=== PATIENT | female | born 1980 | race Two or more races ===

== ENCOUNTER 2019-04-14 16:56 | Emergency (ER) | payer MEDICARE, MEDICAID ==
[~2019-04-14] VITALS: Ht 137.2 cm; Wt 47.2 kg
[2019-04-14] MEDS ORDERED: ONDANSETRON ODT 4 MG TAB PO ONE (17:45)
[2019-04-14 17:56] LABS: Basophils # (auto) 0 uL; Basophils % (auto) 0.7 % (0.0-2.0); Eosinophils # (auto) 0 uL; Eosinophils % (auto) 0.3 % (0.0-7.0); Hematocrit 41.3 % (36.0-46.0); Hemoglobin 13.9 g/dL (12.2-16.2); Lymphocytes # (auto) 0.9 uL; Lymphocytes % (auto) 25.9 % (10.0-50.0); Mean Corpuscular Hemoglobin 29.5 pg (28.0-32.0); Mean Corpuscular Hgb Conc. 33.7 g/dL (32.0-36.0); Mean Corpuscular Volume 87.5 fL (80.0-100.0); Monocytes # (auto) 0.3 uL; Monocytes % (auto) 7.5 % (0.0-12.0); Neutrophils # (auto) 2.3 uL; Neutrophils % (auto) 65.6 % (37.0-80.0); Nucleated Red Blood Cells % 0.2 %; Platelet Count (auto) 223 10^3/uL (140-450); Red Blood Cells 4.72 10^6/uL (4.0-5.20); Red Cell Distribution Width 14.6 % (11.8-14.3); White Blood Cell 3.5 10^3/uL (4.4-10.8)
[2019-04-14 18:12] LABS: Calcium 8.7 mg/dL (8.5-10.1); Potassium 3.8 mmol/L (3.5-5.1)
[2019-04-14 18:13] LABS: BUN/Creatinine Ratio 21.2
[2019-04-14 18:16] LABS: Bilirubin, Total 0.8 mg/dL (0.2-1.0); Total Protein 7.3 g/dL (6.4-8.2)
[2019-04-14 19:42] VITALS: BP 135/56
[2019-04-14 20:46] LABS: Urine Bacteria MANY /hpf (None Seen); Urine Blood Negative /uL (Negative); Urine Mucus FEW (None Seen); Urine Specific Gravity 1.016 (1.001-1.035); Urine WBC 19 /hpf (0 - 5)
== END 2019-04-14 19:40 | disposition home or self-care (01) ==
LOC: ER 16:56
DX: A08.4 Viral intestinal infection, unspecified (principal); N39.0 Urinary tract infection, site not specified
CPT/HCPCS: 36415; 70450; 72040; 80053; 81001; 82962; 85025; 93005

== ENCOUNTER → 2019-06-05 | Outpatient (CLI) | payer MEDICARE, MEDICAID ==
[2019-06-05 13:13] LABS: Basophils # (auto) 0 uL; Eosinophils # (auto) 0 uL; Platelet Count (auto) 229 10^3/uL (140-450)
[2019-06-05 13:16] LABS: Basophils % (auto) 2.1 % (0.0-2.0); Eosinophils % (auto) 0.5 % (0.0-7.0); Hematocrit 41.7 % (36.0-46.0); Hemoglobin 13.8 g/dL (12.2-16.2); Lymphocytes # (auto) 0.8 uL; Lymphocytes % (auto) 49.1 % (10.0-50.0); Mean Corpuscular Hgb Conc. 33.2 g/dL (32.0-36.0); Mean Corpuscular Volume 87.4 fL (80.0-100.0); Monocytes # (auto) 0.2 uL; Monocytes % (auto) 14.7 % (0.0-12.0); Neutrophils # (auto) 0.6 uL; Neutrophils % (auto) 33.6 % (37.0-80.0); Nucleated Red Blood Cells % 0.5 %; Red Blood Cells 4.77 10^6/uL (4.0-5.20); Red Cell Distribution Width 15.3 % (11.8-14.3)
[2019-06-05 13:30] LABS: Urine Bacteria FEW /hpf (None Seen); Urine Blood Negative /uL (Negative); Urine Mucus FEW (None Seen); Urine Specific Gravity 1.015 (1.001-1.035); Urine WBC 1 /hpf (0 - 5)
[2019-06-05 13:37] LABS: Cholesterol 169 mg/dL (< 200); HDL Cholesterol 67 mg/dL (40-59); LDL Cholesterol 86 mg/dL (< 100); Triglycerides 99 mg/dL (< 150)
[2019-06-05 13:43] LABS: Follicle Stimulating Hormone 26.37 IU/L (SEE BELOW); Free T4 (Free Thyroxine) 4.53 ng/dL (0.89-1.76)
[2019-06-05 13:52] LABS: Thyroid Stimulating Hormone < 0.01 uIU/mL (0.358-3.74)
[2019-06-05 14:07] LABS: White Blood Cell 1.7 10^3/uL (4.4-10.8)
[2019-06-09 15:16] LABS: Beta HCG, Quantitative 1 mlU/mL (1-3)
== END | disposition home or self-care (01) ==
LOC: LAB 12:37
PROVIDERS: ATTEND Internal Medicine
DX: E16.2 Hypoglycemia, unspecified (principal); N91.2 Amenorrhea, unspecified; D72.819 Decreased white blood cell count, unspecified; Q90.9 Down syndrome, unspecified; N91.1 Secondary amenorrhea; Z79.899 Other long term (current) drug therapy
CPT/HCPCS: 36415; 80061; 81001; 83001; 84439; 84443; 84702; 85025

== ENCOUNTER 2019-06-06 15:32 | Emergency (ER) | payer MEDICARE, MEDICAID ==
[~2019-06-06] VITALS: Ht 137.2 cm; Wt 49.9 kg
[2019-06-06 16:26] VITALS: BP 157/79
[2019-06-06 17:16] LABS: Basophils # (auto) 0 uL; Basophils % (auto) 1.7 % (0.0-2.0); Eosinophils # (auto) 0 uL; Eosinophils % (auto) 0.5 % (0.0-7.0); Hematocrit 39.3 % (36.0-46.0); Hemoglobin 13.3 g/dL (12.2-16.2); Lymphocytes # (auto) 1.2 uL; Lymphocytes % (auto) 45.6 % (10.0-50.0); Mean Corpuscular Hemoglobin 29.4 pg (28.0-32.0); Mean Corpuscular Hgb Conc. 33.7 g/dL (32.0-36.0); Mean Corpuscular Volume 87.2 fL (80.0-100.0); Monocytes # (auto) 0.3 uL; Neutrophils # (auto) 1.1 uL; Neutrophils % (auto) 40.2 % (37.0-80.0); Nucleated Red Blood Cells % 0.2 %; Platelet Count (auto) 226 10^3/uL (140-450); Red Blood Cells 4.51 10^6/uL (4.0-5.20); Red Cell Distribution Width 15.3 % (11.8-14.3); White Blood Cell 2.6 10^3/uL (4.4-10.8)
[2019-06-06 17:33] LABS: Calcium 8.5 mg/dL (8.5-10.1); Potassium 3.7 mmol/L (3.5-5.1)
[2019-06-06 17:36] LABS: BUN/Creatinine Ratio 27.9; Bilirubin, Total 0.5 mg/dL (0.2-1.0); Total Protein 7.1 g/dL (6.4-8.2)
[2019-06-08 08:25] LABS: Free T3 15.03 pg/mL (2.3-4.2); Free T4 (Free Thyroxine) 4.76 ng/dL (0.89-1.76); T3 Total 3.81 ng/mL (0.60-1.81)
== END 2019-06-06 23:19 | disposition home or self-care (01) ==
LOC: ER 15:36
DX: E03.9 Hypothyroidism, unspecified (principal)
CPT/HCPCS: 36415; 80053; 84436; 84439; 84443; 84480; 84481; 85025

== ENCOUNTER → 2019-06-25 | Outpatient (CLI) | payer MEDICARE, MEDICAID | END | disposition home or self-care (01) | LOC: XYW 10:15 | PROVIDERS: ATTEND Internal Medicine | DX: Z03.89 Encounter for observation for other suspected diseases and conditions ruled out (principal); I35.0 Nonrheumatic aortic (valve) stenosis | CPT/HCPCS: 36415; 84439; 84443; 84481; 85025; 93306 ==

== ENCOUNTER → 2019-06-25 | Outpatient (CLI) | payer MEDICARE, MEDICAID ==
[2019-06-25 12:33] LABS: Basophils # (auto) 0 uL; Basophils % (auto) 2.2 % (0.0-2.0); Eosinophils # (auto) 0 uL; Eosinophils % (auto) 0.3 % (0.0-7.0); Hematocrit 41.6 % (36.0-46.0); Hemoglobin 13.8 g/dL (12.2-16.2); Lymphocytes # (auto) 0.9 uL; Lymphocytes % (auto) 47.8 % (10.0-50.0); Mean Corpuscular Hemoglobin 29.2 pg (28.0-32.0); Mean Corpuscular Hgb Conc. 33.3 g/dL (32.0-36.0); Mean Corpuscular Volume 87.6 fL (80.0-100.0); Monocytes # (auto) 0.3 uL; Monocytes % (auto) 14.1 % (0.0-12.0); Neutrophils # (auto) 0.7 uL; Neutrophils % (auto) 35.6 % (37.0-80.0); Nucleated Red Blood Cells % 0.4 %; Platelet Count (auto) 257 10^3/uL (140-450); Red Blood Cells 4.75 10^6/uL (4.0-5.20); Red Cell Distribution Width 15.5 % (11.8-14.3)
[2019-06-25 12:48] LABS: Free T3 17.04 pg/mL (2.3-4.2); Free T4 (Free Thyroxine) 5.53 ng/dL (0.89-1.76)
== END | disposition home or self-care (01) ==
LOC: LAB 11:55
PROVIDERS: ATTEND Internal Medicine
DX: D72.819 Decreased white blood cell count, unspecified (principal); E05.90 Thyrotoxicosis, unspecified without thyrotoxic crisis or storm
CPT/HCPCS: 36415; 84439; 84443; 84481; 85025

== ENCOUNTER → 2019-09-15 | Outpatient (CLI) | payer MEDICARE, MEDICAID ==
[2019-09-15 13:06] LABS: Basophils # (auto) 0 10 ^3/uL (0-0.2); Basophils % (auto) 0.9 % (0.0-2.0); Eosinophils # (auto) 0 10 ^3/uL (0-0.8); Eosinophils % (auto) 0.8 % (0.0-7.0); Hematocrit 41.6 % (36.0-46.0); Hemoglobin 14.1 g/dL (12.2-16.2); Lymphocytes # (auto) 0.9 10 ^3/uL (0.4-5.4); Lymphocytes % (auto) 24.4 % (10.0-50.0); Mean Corpuscular Hemoglobin 30.6 pg (28.0-32.0); Monocytes # (auto) 0.2 10 ^3/uL (0-1.3); Neutrophils # (auto) 2.6 10 ^3/uL (1.6-8.6); Neutrophils % (auto) 68.9 % (37.0-80.0); Nucleated Red Blood Cells % 0.1 %; Platelet Count (auto) 272 10^3/uL (140-450); Red Blood Cells 4.63 10^6/uL (4.0-5.20); Red Cell Distribution Width 16.3 % (11.8-14.3); White Blood Cell 3.8 10^3/uL (4.4-10.8)
[2019-09-15 13:25] LABS: Free T4 (Free Thyroxine) 0.78 ng/dL (0.89-1.76)
[2019-09-15 13:26] LABS: Free T3 2.23 pg/mL (2.3-4.2)
== END | disposition home or self-care (01) ==
LOC: LAB 12:32
DX: D64.9 Anemia, unspecified (principal); E05.90 Thyrotoxicosis, unspecified without thyrotoxic crisis or storm
CPT/HCPCS: 36415; 84439; 84443; 84481; 85025; 86376; 86800

== ENCOUNTER → 2019-12-01 | Outpatient (CLI) | payer MEDICARE, MEDICAID ==
[2019-12-01 17:26] LABS: Albumin 2.9 g/dL (3.4-5.0); Calcium 7.7 mg/dL (8.5-10.1); Potassium 3.9 mmol/L (3.5-5.1)
[2019-12-01 17:29] LABS: BUN/Creatinine Ratio 25.3; Bilirubin, Total 0.3 mg/dL (0.2-1.0); Total Protein 6.9 g/dL (6.4-8.2)
[2019-12-01 17:36] LABS: Free T3 3.11 pg/mL (2.3-4.2); Free T4 (Free Thyroxine) 1.16 ng/dL (0.89-1.76)
== END | disposition home or self-care (01) ==
LOC: LAB 15:58
DX: E05.90 Thyrotoxicosis, unspecified without thyrotoxic crisis or storm (principal)
CPT/HCPCS: 36415; 80053; 84439; 84443; 84481

== ENCOUNTER → 2021-01-30 | Emergency (ER) | payer MEDICARE, MEDICAID | END | disposition left against medical advice (07) | LOC: ER 20:52 | DX: E86.0 Dehydration (principal); Z53.21 Procedure and treatment not carried out due to patient leaving prior to being seen by health care provider ==

== ENCOUNTER 2021-03-04 03:36 | Emergency (ER) | payer MEDICARE, MEDICAID ==
[~2021-03-04] VITALS: Ht 137.2 cm; Wt 46.3 kg
[2021-03-04 05:11] LABS: Basophils # (auto) 0.1 10 ^3/uL (0-0.2); Basophils % (auto) 1.4 % (0.0-2.0); Eosinophils # (auto) 0 10 ^3/uL (0-0.8); Eosinophils % (auto) 0.8 % (0.0-7.0); Hematocrit 34.4 % (36.0-46.0); Hemoglobin 11.3 g/dL (12.2-16.2); Lymphocytes # (auto) 1.6 10 ^3/uL (0.4-5.4); Lymphocytes % (auto) 31.2 % (10.0-50.0); Mean Corpuscular Hemoglobin 31.7 pg (28.0-32.0); Mean Corpuscular Hgb Conc. 32.9 g/dL (32.0-36.0); Mean Corpuscular Volume 96.3 fL (80.0-100.0); Monocytes # (auto) 0.4 10 ^3/uL (0-1.3); Monocytes % (auto) 7.8 % (0.0-12.0); Neutrophils % (auto) 58.8 % (37.0-80.0); Nucleated Red Blood Cells % 0.1 %; Red Blood Cells 3.57 10^6/uL (4.0-5.20); Red Cell Distribution Width 19.2 % (11.8-14.3); White Blood Cell 5.1 10^3/uL (4.4-10.8)
[2021-03-04 05:27] LABS: Albumin 1.6 g/dL (3.4-5.0); Potassium 3.4 mmol/L (3.5-5.1)
[2021-03-04 05:30] LABS: Bilirubin, Total 0.4 mg/dL (0.2-1.0); Total Protein 5.1 g/dL (6.4-8.2)
[2021-03-04 05:48] LABS: Calcium 5.9 mg/dL (8.5-10.1)
[2021-03-04] MEDS ORDERED: CALCIUM GLUC 1,000mg/50ml-NS 50 ML IV ONE (06:00)
[2021-03-04] MEDS ORDERED: POTASSIUM EFFERVESENT TAB 25 MEQ PO ONE (07:00)
[2021-03-04 11:00] VITALS: BP 135/75
== END 2021-03-04 12:36 | disposition home or self-care (01) ==
LOC: ER 03:36 → EDBD 03:36 → ER 12:36
DX: E83.51 Hypocalcemia (principal); E87.6 Hypokalemia; E43 Unspecified severe protein-calorie malnutrition; E03.9 Hypothyroidism, unspecified; Z68.24 Body mass index [BMI] 24.0-24.9, adult
CPT/HCPCS: 36415; 70450; 80053; 82310; 82330; 83735; 85025; 93005; 96365; 99285; J0610

== ENCOUNTER 2021-04-22 19:12 | Inpatient (IN) | payer MEDICARE, MEDICAID ==
[~2021-04-22] VITALS: Ht 137.2 cm; Wt 47.1 kg
[2021-04-23 00:28] LABS: Basophils # (auto) 0.1 10 ^3/uL (0-0.2); Basophils % (auto) 1.6 % (0.0-2.0); Eosinophils # (auto) 0 10 ^3/uL (0-0.8); Eosinophils % (auto) 0.2 % (0.0-7.0); Hematocrit 46.5 % (36.0-46.0); Hemoglobin 15.3 g/dL (12.2-16.2); Lymphocytes # (auto) 1.3 10 ^3/uL (0.4-5.4); Lymphocytes % (auto) 21.9 % (10.0-50.0); Mean Corpuscular Hemoglobin 31.6 pg (28.0-32.0); Mean Corpuscular Volume 95.8 fL (80.0-100.0); Monocytes # (auto) 0.4 10 ^3/uL (0-1.3); Monocytes % (auto) 7.1 % (0.0-12.0); Neutrophils % (auto) 69.2 % (37.0-80.0); Nucleated Red Blood Cells % 0.1 %; Red Blood Cells 4.85 10^6/uL (4.0-5.20); Red Cell Distribution Width 15.3 % (11.8-14.3); White Blood Cell 5.8 10^3/uL (4.4-10.8)
[2021-04-23 00:44] LABS: Albumin 3.9 g/dL (3.4-5.0); BUN/Creatinine Ratio 11.6; Calcium 9.2 mg/dL (8.5-10.1); Magnesium 2.8 mg/dL (1.6-2.6)
[2021-04-23 00:47] LABS: Bilirubin, Total 0.5 mg/dL (0.2-1.0); Total Protein 8.6 g/dL (6.4-8.2)
[2021-04-23] MEDS ORDERED: SODIUM CHLORIDE 0.9% 1,000 ML IV ONE (02:45)
[2021-04-23] MEDS ORDERED: ONDANSETRON HCL 4 MG/2 ML VIAL IV PRN (03:00)
[2021-04-23] MEDS ORDERED: ACETAMINOPHEN 325 MG TAB PO PRN (03:00)
[2021-04-23] MEDS ORDERED: DOCUSATE SOD 100 MG CAP PO PRN (03:00)
[2021-04-23] MEDS ORDERED: HYDROcodone-ACET 5/325MG TAB PO PRN (03:00)
[2021-04-23] MEDS ORDERED: levETIRAcetam 500 MG/5ML INJ IV ONE (04:07)
[2021-04-23] MEDS ORDERED: LORazepam 2MG/ML-1ML VIAL IV ONE (04:15)
[2021-04-23 04:34] LABS: Basophils # (auto) 0.1 10 ^3/uL (0-0.2); Basophils % (auto) 1.2 % (0.0-2.0); Eosinophils # (auto) 0 10 ^3/uL (0-0.8); Hematocrit 43.4 % (36.0-46.0); Hemoglobin 14.6 g/dL (12.2-16.2); Lymphocytes # (auto) 1.2 10 ^3/uL (0.4-5.4); Lymphocytes % (auto) 18.4 % (10.0-50.0); Mean Corpuscular Hemoglobin 31.7 pg (28.0-32.0); Mean Corpuscular Hgb Conc. 33.6 g/dL (32.0-36.0); Mean Corpuscular Volume 94.6 fL (80.0-100.0); Monocytes # (auto) 0.4 10 ^3/uL (0-1.3); Monocytes % (auto) 7.1 % (0.0-12.0); Neutrophils # (auto) 4.6 10 ^3/uL (1.6-8.6); Neutrophils % (auto) 73.3 % (37.0-80.0); Nucleated Red Blood Cells % 0.1 %; Red Blood Cells 4.59 10^6/uL (4.0-5.20); Red Cell Distribution Width 15.7 % (11.8-14.3); White Blood Cell 6.3 10^3/uL (4.4-10.8)
[2021-04-23 04:41] LABS: INR 1.12 (0.9-1.15)
[2021-04-23 04:45] LABS: Albumin 3.7 g/dL (3.4-5.0); Calcium 8.8 mg/dL (8.5-10.1); Magnesium 2.9 mg/dL (1.6-2.6); Potassium 4.2 mmol/L (3.5-5.1)
[2021-04-23] MEDS ORDERED: MORPHINE SULFATE INJECTION 2 MG/ML SYRG IV PRN (04:45)
[2021-04-23] MEDS ORDERED: NITROGLYCERIN 0.4 MG SL TAB SL PRN (04:45)
[2021-04-23 04:52] LABS: BUN/Creatinine Ratio 11.6; Bilirubin, Total 0.5 mg/dL (0.2-1.0); Total Protein 8.8 g/dL (6.4-8.2)
[2021-04-23] MEDS: SODIUM CHLOR 0.9% PF (SALINE LOCK) 10ML VIAL/SYR IV SCH ×3 (05:59→22:15)
[2021-04-23] MEDS: ZINC SULFATE 220mg CAP or TAB PO SCH (10:00)
[2021-04-23] MEDS: MULTIPLE VITAMIN TAB PO SCH (10:00)
[2021-04-23] MEDS: ASCORBIC ACID 500 MG TAB PO SCH ×2 (10:00→22:00)
[2021-04-23] MEDS: ENOXAPARIN SOD 40 MG/0.4 ML SYRINGE SC SCH (10:20)
[2021-04-23] MEDS: FAMOTIDINE (10MG/ML) 2ML VL IV SCH (10:20)
[2021-04-23] MEDS ORDERED: METH5T PO (18:39)
[2021-04-23] MEDS ORDERED: OMEP-434 PO (18:39)
[2021-04-23] MEDS ORDERED: LEVE500T32 PO (19:34)
[2021-04-23] MEDS ORDERED: DIP005TP TOP (19:35)
[2021-04-23] MEDS ORDERED: TRIA0.1P17 TOP (19:35)
[2021-04-23 22:00] VITALS: BP 100/59
[2021-04-23] MEDS ORDERED: LORazepam 2MG/ML-1ML VIAL IV PRN ×2 (23:15)
[2021-04-24 05:00] VITALS: BP 122/70
[2021-04-24] MEDS: SODIUM CHLOR 0.9% PF (SALINE LOCK) 10ML VIAL/SYR IV SCH ×3 (05:43→21:50)
[2021-04-24 09:00] VITALS: BP 114/62
[2021-04-24] MEDS: FAMOTIDINE (10MG/ML) 2ML VL IV SCH (12:05)
[2021-04-24] MEDS: ENOXAPARIN SOD 40 MG/0.4 ML SYRINGE SC SCH (12:06)
[2021-04-24] MEDS: MULTIPLE VITAMIN TAB PO SCH (12:06)
[2021-04-24] MEDS: ASCORBIC ACID 500 MG TAB PO SCH ×2 (12:06→21:50)
[2021-04-24] MEDS: ZINC SULFATE 220mg CAP or TAB PO SCH (12:06)
[2021-04-24 13:00] VITALS: BP 110/58
[2021-04-24 14:47] LABS: Albumin 3.3 g/dL (3.4-5.0); Calcium 8.2 mg/dL (8.5-10.1)
[2021-04-24 14:52] LABS: Bilirubin, Total 0.6 mg/dL (0.2-1.0); Total Protein 7.1 g/dL (6.4-8.2)
[2021-04-24 16:54] LABS: Basophils # (auto) 0.1 10 ^3/uL (0-0.2); Eosinophils # (auto) 0 10 ^3/uL (0-0.8); Eosinophils % (auto) 0.6 % (0.0-7.0); Hematocrit 42.6 % (36.0-46.0); Hemoglobin 14.1 g/dL (12.2-16.2); Lymphocytes # (auto) 1.2 10 ^3/uL (0.4-5.4); Lymphocytes % (auto) 36.4 % (10.0-50.0); Mean Corpuscular Hemoglobin 31.7 pg (28.0-32.0); Mean Corpuscular Hgb Conc. 33.1 g/dL (32.0-36.0); Mean Corpuscular Volume 95.9 fL (80.0-100.0); Monocytes # (auto) 0.3 10 ^3/uL (0-1.3); Monocytes % (auto) 9.3 % (0.0-12.0); Neutrophils # (auto) 1.8 10 ^3/uL (1.6-8.6); Neutrophils % (auto) 51.7 % (37.0-80.0); Nucleated Red Blood Cells % 0.1 %; Red Blood Cells 4.44 10^6/uL (4.0-5.20); Red Cell Distribution Width 15.1 % (11.8-14.3); White Blood Cell 3.4 10^3/uL (4.4-10.8)
[2021-04-24 17:00] VITALS: BP 135/64
[2021-04-24 23:16] VITALS: BP 104/44
[2021-04-25 05:00] VITALS: BP 91/47
[2021-04-25] MEDS: SODIUM CHLOR 0.9% PF (SALINE LOCK) 10ML VIAL/SYR IV SCH ×3 (06:07→21:20)
[2021-04-25] MEDS: FAMOTIDINE (10MG/ML) 2ML VL IV SCH (10:32)
[2021-04-25] MEDS: ZINC SULFATE 220mg CAP or TAB PO SCH (10:32)
[2021-04-25] MEDS: ENOXAPARIN SOD 40 MG/0.4 ML SYRINGE SC SCH (10:33)
[2021-04-25] MEDS: ASCORBIC ACID 500 MG TAB PO SCH ×2 (10:33→21:19)
[2021-04-25] MEDS: MULTIPLE VITAMIN TAB PO SCH (10:33)
[2021-04-25 17:00] VITALS: BP 93/56
[2021-04-25 22:00] VITALS: BP 95/52
[2021-04-26] MEDS: SODIUM CHLOR 0.9% PF (SALINE LOCK) 10ML VIAL/SYR IV SCH ×3 (05:48→22:00)
[2021-04-26 09:00] VITALS: BP 115/51
[2021-04-26] MEDS: ASCORBIC ACID 500 MG TAB PO SCH (10:00)
[2021-04-26] MEDS: ZINC SULFATE 220mg CAP or TAB PO SCH (10:00)
[2021-04-26] MEDS: FAMOTIDINE (10MG/ML) 2ML VL IV SCH (10:00)
[2021-04-26] MEDS: MULTIPLE VITAMIN TAB PO SCH (10:00)
[2021-04-26] MEDS: ENOXAPARIN SOD 40 MG/0.4 ML SYRINGE SC SCH (10:00)
[2021-04-26 16:54] VITALS: BP 118/67
[2021-04-27] MEDS: SODIUM CHLOR 0.9% PF (SALINE LOCK) 10ML VIAL/SYR IV SCH ×3 (06:00→22:09)
[2021-04-27 09:00] VITALS: BP 104/65
[2021-04-27] MEDS: MULTIPLE VITAMIN TAB PO SCH (10:00)
[2021-04-27] MEDS: ENOXAPARIN SOD 40 MG/0.4 ML SYRINGE SC SCH (10:00)
[2021-04-27 10:14] LABS: Free T3 2.29 pg/mL (2.3-4.2); Free T4 (Free Thyroxine) 1.2 ng/dL (0.89-1.76); T3 Total 0.62 ng/mL (0.60-1.81)
[2021-04-27] MEDS: FAMOTIDINE (10MG/ML) 2ML VL IV SCH (10:49)
[2021-04-27] MEDS ORDERED: LORazepam 2MG/ML-1ML VIAL IV ONE (11:30)
[2021-04-27 13:00] VITALS: BP 99/70
[2021-04-27 17:00] VITALS: BP 95/57
[2021-04-27 19:14] LABS: Albumin 3.5 g/dL (3.4-5.0); Calcium 8.4 mg/dL (8.5-10.1)
[2021-04-27 19:17] LABS: BUN/Creatinine Ratio 15.9; Bilirubin, Total 0.6 mg/dL (0.2-1.0); Phosphorus 3.4 mg/dL (2.5-4.90); Total Protein 7.6 g/dL (6.4-8.2)
[2021-04-27] MEDS ORDERED: AMINO ACID INFUSION IN D10W 1,000 ML IV NR (20:00)
[2021-04-27] MEDS ORDERED: PPN PER PHARMACY 0 ML IV SCH (22:00)
[2021-04-28] MEDS ORDERED: DEXTROSE (50%) 50ML SYRG IV SCH
[2021-04-28] MEDS: ACCU-CHEK COMFORT CURVE STRIP VI SCH ×5 (00:03→23:46)
[2021-04-28] MEDS: SODIUM CHLOR 0.9% PF (SALINE LOCK) 10ML VIAL/SYR IV SCH ×3 (05:30→22:15)
[2021-04-28] MEDS: InsuLIN REG 1unit/0.01ml Soln (100units/ml) SC SCH ×5 (05:31→23:45)
[2021-04-28 05:46] VITALS: BP 115/55
[2021-04-28 07:45] LABS: Albumin 2.5 g/dL (3.4-5.0); Calcium 6.2 mg/dL (8.5-10.1); Magnesium 2.4 mg/dL (1.6-2.6); Potassium 3.3 mmol/L (3.5-5.1)
[2021-04-28 07:50] LABS: BUN/Creatinine Ratio 21.7; Bilirubin, Total 0.5 mg/dL (0.2-1.0); Phosphorus 2.3 mg/dL (2.5-4.90); Total Protein 5.3 g/dL (6.4-8.2)
[2021-04-28 08:17] LABS: Pre Albumin 8.5 mg/dL (20.0-40.0)
[2021-04-28 09:00] VITALS: BP 124/92
[2021-04-28] MEDS ORDERED: CALCIUM GLUC 1,000mg/50ml-NS 50 ML IV ONE (09:00)
[2021-04-28] MEDS: FAMOTIDINE (10MG/ML) 2ML VL IV SCH (09:10)
[2021-04-28] MEDS: ENOXAPARIN SOD 40 MG/0.4 ML SYRINGE SC SCH (09:10)
[2021-04-28] MEDS: MULTIPLE VITAMIN TAB PO SCH (09:11)
[2021-04-28] MEDS ORDERED: POTASSIUM PHOSPHATE 26.4 MEQ in SODIUM CHL 0.9% 100 ML IV ONE (10:00)
[2021-04-28] MEDS ORDERED: POTASSIUM EFFERVESENT TAB 25 MEQ PO ONE (10:45)
[2021-04-28 13:00] VITALS: BP 111/73
[2021-04-28 17:00] VITALS: BP 109/52
[2021-04-28] MEDS ORDERED: ERGOCALCIFEROL 50,000 UNIT(1.25MG) CAP PO SCH (17:00)
[2021-04-28] MEDS ORDERED: PPN PER PHARMACY IV NR ×9 (20:00)
[2021-04-28 21:23] LABS: Urine Bacteria MOD /hpf (None Seen); Urine Blood Negative /uL (Negative); Urine Hyaline Cast FEW /lpf (0 - 2); Urine Mucus FEW (None Seen); Urine Specific Gravity 1.007 (1.001-1.035); Urine WBC 2 /hpf (0 - 5)
[2021-04-28 22:00] VITALS: BP 110/60
[2021-04-29] MEDS: InsuLIN REG 1unit/0.01ml Soln (100units/ml) SC SCH ×4 (05:32→23:31)
[2021-04-29] MEDS: ACCU-CHEK COMFORT CURVE STRIP VI SCH ×3 (05:32→18:11)
[2021-04-29] MEDS: SODIUM CHLOR 0.9% PF (SALINE LOCK) 10ML VIAL/SYR IV SCH ×3 (05:32→23:30)
[2021-04-29 09:00] VITALS: BP 118/64
[2021-04-29] MEDS: MULTIPLE VITAMIN TAB PO SCH (10:00)
[2021-04-29] MEDS: FAMOTIDINE (10MG/ML) 2ML VL IV SCH (10:18)
[2021-04-29] MEDS: ENOXAPARIN SOD 40 MG/0.4 ML SYRINGE SC SCH (10:21)
[2021-04-29 12:31] LABS: Albumin 3.5 g/dL (3.4-5.0); Calcium 8.8 mg/dL (8.5-10.1); Magnesium 2.7 mg/dL (1.6-2.6); Potassium 4.1 mmol/L (3.5-5.1)
[2021-04-29 12:36] LABS: BUN/Creatinine Ratio 29.4; Bilirubin, Total 0.8 mg/dL (0.2-1.0); Phosphorus 2.7 mg/dL (2.5-4.90); Total Protein 7.9 g/dL (6.4-8.2)
[2021-04-29 17:00] VITALS: BP 97/47
[2021-04-29] MEDS: PPN PER PHARMACY IV NR ×7 (19:53)
[2021-04-29 22:08] VITALS: BP 109/55
[2021-04-30] MEDS: InsuLIN REG 1unit/0.01ml Soln (100units/ml) SC SCH ×3 (06:00→17:48)
[2021-04-30] MEDS: ACCU-CHEK COMFORT CURVE STRIP VI SCH ×4 (06:00→17:48)
[2021-04-30] MEDS: SODIUM CHLOR 0.9% PF (SALINE LOCK) 10ML VIAL/SYR IV SCH ×3 (06:00→21:39)
[2021-04-30 07:44] LABS: Calcium 8.1 mg/dL (8.5-10.1); Magnesium 2.6 mg/dL (1.6-2.6)
[2021-04-30 07:48] LABS: Bilirubin, Total 0.6 mg/dL (0.2-1.0); Phosphorus 2.8 mg/dL (2.5-4.90); Total Protein 7.3 g/dL (6.4-8.2)
[2021-04-30 08:00] VITALS: BP 96/50
[2021-04-30 08:01] LABS: Potassium 2.8 mmol/L (3.5-5.1)
[2021-04-30] MEDS: POTASSIUM CHL 20MEQ/50ML 50 ML IV SCH ×2 (08:46→12:04)
[2021-04-30 09:00] VITALS: BP 96/50
[2021-04-30] MEDS: MULTIPLE VITAMIN TAB PO SCH (10:00)
[2021-04-30] MEDS: FAMOTIDINE (10MG/ML) 2ML VL IV SCH (10:28)
[2021-04-30] MEDS: ENOXAPARIN SOD 40 MG/0.4 ML SYRINGE SC SCH (10:28)
[2021-04-30 13:00] VITALS: BP 98/62
[2021-04-30 17:00] VITALS: BP 99/62
[2021-04-30] MEDS: PPN PER PHARMACY IV NR ×15 (19:59→21:35)
[2021-04-30 22:16] VITALS: BP 86/64
[2021-05-01 09:00] VITALS: BP 92/57
[2021-05-01] MEDS: FAMOTIDINE (10MG/ML) 2ML VL IV SCH (10:00)
[2021-05-01] MEDS: InsuLIN REG 1unit/0.01ml Soln (100units/ml) SC SCH ×4 (11:25→18:00)
[2021-05-01] MEDS: ACCU-CHEK COMFORT CURVE STRIP VI SCH ×4 (11:33→17:57)
[2021-05-01 11:54] LABS: BUN/Creatinine Ratio 33.9
[2021-05-01 11:55] LABS: Albumin 3.3 g/dL (3.4-5.0); Bilirubin, Total 0.7 mg/dL (0.2-1.0); Calcium 8.5 mg/dL (8.5-10.1); Magnesium 2.5 mg/dL (1.6-2.6); Phosphorus 2.5 mg/dL (2.5-4.90); Total Protein 7.5 g/dL (6.4-8.2)
[2021-05-01] MEDS ORDERED: fentaNYL CITRATE 100 MCG/2 ML VL ONE (12:26)
[2021-05-01] MEDS ORDERED: diphenhdrAMINE HCL 50 MG/1 ML VL ONE (12:26)
[2021-05-01] MEDS ORDERED: LIDOCAINE VISCOUS 2% 15ML UD ONE (12:26)
[2021-05-01] MEDS ORDERED: NALOXONE HCL 0.4 MG/ML VIAL ONE (12:56)
[2021-05-01] MEDS ORDERED: EPINEPHrine HCL 1 MG/10 ML SYRG ONE (12:56)
[2021-05-01] MEDS ORDERED: FLUMAZENIL 0.1 MG/ML INJ 10ML MDV IV ONE (12:56)
[2021-05-01 13:00] VITALS: BP 93/56
[2021-05-01] MEDS: MIDAZOLAM HCL 5 MG/ML-1ML VIAL ONE ×2 (13:46→13:51)
[2021-05-01] MEDS: SODIUM CHLOR 0.9% PF (SALINE LOCK) 10ML VIAL/SYR IV SCH ×2 (14:00→14:30)
[2021-05-01] MEDS: MULTIPLE VITAMIN TAB PO SCH (14:30)
[2021-05-01 17:33] VITALS: BP 94/55
[2021-05-01] MEDS: PPN PER PHARMACY IV NR ×8 (17:49)
[2021-05-01] MEDS ORDERED: LACTULOSE 10g/15ml SOLN PR ONE (18:30)
[2021-05-01] MEDS ORDERED: LACTULOSE 20Gm/30ML SOLN PO PRN (18:30)
[2021-05-01 20:00] VITALS: BP 98/60
[2021-05-01] MEDS ORDERED: PPN PER PHARMACY IV NR ×9 (20:00)
[2021-05-01 22:00] VITALS: BP 98/60
[2021-05-02] MEDS: SODIUM CHLOR 0.9% PF (SALINE LOCK) 10ML VIAL/SYR IV SCH ×2 (00:16→05:54)
[2021-05-02] MEDS: ACCU-CHEK COMFORT CURVE STRIP VI SCH ×3 (00:22→12:00)
[2021-05-02] MEDS: InsuLIN REG 1unit/0.01ml Soln (100units/ml) SC SCH ×3 (00:26→12:00)
[2021-05-02] MEDS: MULTIPLE VITAMIN TAB PO SCH (10:00)
[2021-05-02] MEDS ORDERED: PANTOPRAZOLE 40 MG/10 ML VIAL INJ IV SCH (10:00)
== END 2021-05-02 15:00 | disposition home or self-care (01) | DRG 640 ==
LOC: ER 19:13 → OVERFLOW 04-23 04:38 → CENTRAL 04-23 16:50
PROVIDERS: ADMIT Nurse Practitioner Family; ATTEND Internal Medicine
PROC: 05HB33Z Insertion of Infusion Device into Right Basilic Vein, Percutaneous Approach (ICD-10-PCS; 2021-04-27)
PROC: B54MZZA Ultrasonography of Right Upper Extremity Veins, Guidance (ICD-10-PCS; 2021-04-27)
PROC: 0DJ08ZZ Inspection of Upper Intestinal Tract, Via Natural or Artificial Opening Endoscopic (ICD-10-PCS; principal; 2021-05-01 13:45)
DX: R62.7 Adult failure to thrive (principal); G93.41 Metabolic encephalopathy; G95.9 Disease of spinal cord, unspecified; E87.0 Hyperosmolality and hypernatremia; E44.0 Moderate protein-calorie malnutrition; Q90.9 Down syndrome, unspecified; K20.90 Esophagitis, unspecified without bleeding; K44.9 Diaphragmatic hernia without obstruction or gangrene; R13.10 Dysphagia, unspecified; K59.00 Constipation, unspecified; E83.42 Hypomagnesemia; G40.909 Epilepsy, unspecified, not intractable, without status epilepticus; F79 Unspecified intellectual disabilities; Z66 Do not resuscitate; R29.2 Abnormal reflex; E87.6 Hypokalemia; Z20.822 Contact with and (suspected) exposure to COVID-19; Z82.49 Family history of ischemic heart disease and other diseases of the circulatory system; Z83.3 Family history of diabetes mellitus; Z79.899 Other long term (current) drug therapy
CPT/HCPCS: 36415; 43235; 70450; 71045; 74176; 76536; 80053; 81001; 82040; 82306; 82542; 82962; 83605; 83735; 84100; 84439; 84443; 84478; 84480; 84481; 84484; 84702; 85025; 85610; 86376; 87040; 87426; 96365; 96372; 97163; G0378; J1815; J2250; J3490; J7060; J7131